=== PATIENT | female | born 2000 | race Two or more races ===

== ENCOUNTER → 2022-04-06 | Outpatient (CLI) | payer MEDICAID ==
[~2022-04-06] MED LIST: PRENTAB28 PO
[2022-04-06 09:33] LABS: Urine Amorphous Crystal MOD /hpf (None Seen); Urine Bacteria FEW /hpf (None Seen); Urine Blood Negative /uL (Negative); Urine Mucus FEW (None Seen); Urine WBC 3 /hpf (0 - 5)
[2022-04-06 09:34] LABS: Basophils # (auto) 0 10 ^3/uL (0-0.2); Basophils % (auto) 0.6 % (0.0-2.0); Eosinophils # (auto) 0 10 ^3/uL (0-0.8); Eosinophils % (auto) 0.6 % (0.0-7.0); Hematocrit 37.3 % (36.0-46.0); Hemoglobin 12.7 g/dL (12.2-16.2); Lymphocytes # (auto) 1.7 10 ^3/uL (0.4-5.4); Lymphocytes % (auto) 27.6 % (10.0-50.0); Mean Corpuscular Hemoglobin 29.3 pg (28.0-32.0); Mean Corpuscular Volume 86.3 fL (80.0-100.0); Monocytes # (auto) 0.4 10 ^3/uL (0-1.3); Neutrophils % (auto) 64.2 % (37.0-80.0); Nucleated Red Blood Cells % 0.1 %; Red Blood Cells 4.32 10^6/uL (4.0-5.20); Red Cell Distribution Width 13.7 % (11.8-14.3); White Blood Cell 6.1 10^3/uL (4.4-10.8)
[2022-04-06 10:11] LABS: Amphetamine Screen, Urine NEGATIVE (NEGATIVE); Barbiturate Scree,Urine NEGATIVE (NEGATIVE); Benzodiazephine Screen, Urine NEGATIVE (NEGATIVE); Cannabinoid Screen, Urine POSITIVE (NEGATIVE); Cocaine Screen, Urine NEGATIVE (NEGATIVE); Phencyclidine Screen, Urine NEGATIVE (NEGATIVE)
[2022-04-06 10:16] LABS: Opiate Scree,Urine NEGATIVE (NEGATIVE)
[2022-04-07 08:07] LABS: RPR Non Reactive (Non Reactive)
== END | disposition home or self-care (01) ==
LOC: LAB 09:02
PROVIDERS: ATTEND Obstetrics & Gynecology
DX: Z34.80 Encounter for supervision of other normal pregnancy, unspecified trimester (principal); Z36.0 Encounter for antenatal screening for chromosomal anomalies; Z31.430 Encounter of female for testing for genetic disease carrier status for procreative management; N39.0 Urinary tract infection, site not specified; Z3A.00 Weeks of gestation of pregnancy not specified
CPT/HCPCS: 36415; 80307; 81001; 83036; 84112; 84702; 85025; 86592; 86703; 86762; 86850; 86900; 86901; 87086; 87340

== ENCOUNTER 2022-04-30 08:03 | Emergency (ER) | payer MEDICAID ==
[~2022-04-30] VITALS: Ht 162.6 cm; Wt 80.3 kg
[2022-04-30 08:34] LABS: Basophils # (auto) 0 10 ^3/uL (0-0.2); Basophils % (auto) 0.4 % (0.0-2.0); Eosinophils # (auto) 0 10 ^3/uL (0-0.8); Hematocrit 38.1 % (36.0-46.0); Hemoglobin 13.2 g/dL (12.2-16.2); Lymphocytes % (auto) 11.8 % (10.0-50.0); Mean Corpuscular Hemoglobin 29.6 pg (28.0-32.0); Mean Corpuscular Hgb Conc. 34.7 g/dL (32.0-36.0); Mean Corpuscular Volume 85.3 fL (80.0-100.0); Monocytes # (auto) 0.5 10 ^3/uL (0-1.3); Monocytes % (auto) 5.2 % (0.0-12.0); Neutrophils # (auto) 7.3 10 ^3/uL (1.6-8.6); Neutrophils % (auto) 82.6 % (37.0-80.0); Red Blood Cells 4.47 10^6/uL (4.0-5.20); Red Cell Distribution Width 13.8 % (11.8-14.3); White Blood Cell 8.8 10^3/uL (4.4-10.8)
[2022-04-30 08:57] LABS: Calcium 9.7 mg/dL (8.5-10.1); Potassium 3.4 mmol/L (3.5-5.1)
[2022-04-30] MEDS ORDERED: LACTATED RINGER'S 1,000 ML IV ONE (09:15)
[2022-04-30] MEDS ORDERED: ONDANSETRON HCL 4 MG/2 ML VIAL IV ONE (09:15)
[2022-04-30 09:30] VITALS: BP 120/75
[2022-04-30 09:54] LABS: Urine Bacteria NONE SEEN /hpf (None Seen); Urine Blood Negative /uL (Negative); Urine Mucus FEW (None Seen); Urine Specific Gravity 1.024 (1.001-1.035); Urine WBC 10 /hpf (0 - 5)
[2022-04-30] MEDS ORDERED: PROM25TA5 PO (10:31)
== END 2022-04-30 11:08 | disposition home or self-care (01) ==
LOC: ER 08:07
DX: O21.8 Other vomiting complicating pregnancy (principal); R10.2 Pelvic and perineal pain; Z79.899 Other long term (current) drug therapy; Z3A.13 13 weeks gestation of pregnancy
CPT/HCPCS: 36415; 80048; 81001; 84702; 85025; 96361; 96374; 99283; J2405; J7120

== ENCOUNTER 2022-05-02 04:34 | Emergency (ER) | payer MEDICAID ==
[~2022-05-02] VITALS: Ht 162.6 cm; Wt 80.3 kg
[~2022-05-02 04:34] MED LIST changes: +PROM25TA5 PO
[2022-05-02] MEDS ORDERED: PROMETHAZINE HCL 25 MG/ML 1ML IV ONE (04:45)
[2022-05-02] MEDS ORDERED: SODIUM CHLORIDE 0.9% 1,000 ML IV ONE ×3 (04:45→07:00)
[2022-05-02 05:07] LABS: Basophils # (auto) 0 10 ^3/uL (0-0.2); Basophils % (auto) 0.3 % (0.0-2.0); Eosinophils # (auto) 0 10 ^3/uL (0-0.8); Eosinophils % (auto) 0.2 % (0.0-7.0); Hematocrit 36.1 % (36.0-46.0); Hemoglobin 12.7 g/dL (12.2-16.2); Lymphocytes # (auto) 1.6 10 ^3/uL (0.4-5.4); Lymphocytes % (auto) 21.1 % (10.0-50.0); Mean Corpuscular Hemoglobin 29.9 pg (28.0-32.0); Mean Corpuscular Hgb Conc. 35.2 g/dL (32.0-36.0); Mean Corpuscular Volume 85.1 fL (80.0-100.0); Monocytes # (auto) 0.4 10 ^3/uL (0-1.3); Monocytes % (auto) 5.7 % (0.0-12.0); Neutrophils # (auto) 5.5 10 ^3/uL (1.6-8.6); Neutrophils % (auto) 72.7 % (37.0-80.0); Red Blood Cells 4.24 10^6/uL (4.0-5.20); Red Cell Distribution Width 13.7 % (11.8-14.3); White Blood Cell 7.6 10^3/uL (4.4-10.8)
[2022-05-02] MEDS ORDERED: METOCLOPRAMIDE HCL 5MG/ml INJ 2ml VIAL IV ONE (05:15)
[2022-05-02 05:17] LABS: Albumin 3.7 g/dL (3.4-5.0); BUN/Creatinine Ratio 7.2; Calcium 9.3 mg/dL (8.5-10.1); Potassium 3.1 mmol/L (3.5-5.1)
[2022-05-02 05:20] LABS: Bilirubin, Total 0.8 mg/dL (0.2-1.0); Total Protein 7.3 g/dL (6.4-8.2)
[2022-05-02 08:53] LABS: Urine Bacteria FEW /hpf (None Seen); Urine Blood Negative /uL (Negative); Urine Mucus FEW (None Seen); Urine Specific Gravity 1.022 (1.001-1.035); Urine WBC 5 /hpf (0 - 5)
[2022-05-02 09:27] VITALS: BP 108/64
== END 2022-05-02 09:32 | disposition home or self-care (01) ==
LOC: ER 04:34
DX: O21.0 Mild hyperemesis gravidarum (principal); O26.891 Other specified pregnancy related conditions, first trimester; R10.2 Pelvic and perineal pain; Z3A.13 13 weeks gestation of pregnancy
CPT/HCPCS: 36415; 76801; 80053; 81001; 83690; 84702; 85025; 96361; 96374; 99285; J2765; J7030

== ENCOUNTER 2022-07-13 16:35 | Emergency (ER) | payer MEDICAID ==
[~2022-07-13] VITALS: Ht 162.6 cm; Wt 93.4 kg
[2022-07-13 17:00] VITALS: BP 124/61
[2022-07-13 18:41] LABS: Basophils # (auto) 0 10 ^3/uL (0-0.2); Basophils % (auto) 0.4 % (0.0-2.0); Eosinophils # (auto) 0 10 ^3/uL (0-0.8); Eosinophils % (auto) 0.2 % (0.0-7.0); Hematocrit 35.3 % (36.0-46.0); Hemoglobin 11.6 g/dL (12.2-16.2); Lymphocytes # (auto) 1.9 10 ^3/uL (0.4-5.4); Lymphocytes % (auto) 20.7 % (10.0-50.0); Mean Corpuscular Hemoglobin 28.8 pg (28.0-32.0); Mean Corpuscular Hgb Conc. 32.8 g/dL (32.0-36.0); Monocytes # (auto) 0.5 10 ^3/uL (0-1.3); Monocytes % (auto) 5.6 % (0.0-12.0); Neutrophils # (auto) 6.7 10 ^3/uL (1.6-8.6); Neutrophils % (auto) 73.1 % (37.0-80.0); Nucleated Red Blood Cells % 0.1 %; Red Blood Cells 4.01 10^6/uL (4.0-5.20); Red Cell Distribution Width 13.8 % (11.8-14.3); White Blood Cell 9.1 10^3/uL (4.4-10.8)
[2022-07-13 19:00] LABS: Albumin 3.2 g/dL (3.4-5.0); Calcium 9.1 mg/dL (8.5-10.1); Potassium 3.9 mmol/L (3.5-5.1)
[2022-07-13 19:04] LABS: BUN/Creatinine Ratio 7.8 (10.0-20.0); Bilirubin, Total 0.2 mg/dL (0.2-1.0); Total Protein 6.6 g/dL (6.4-8.2)
[2022-07-13 20:18] LABS: Urine Amorphous Crystal FEW /hpf (None Seen); Urine Bacteria FEW /hpf (None Seen); Urine Blood Negative /uL (Negative); Urine WBC <1 /hpf (0 - 5)
[2022-07-13 20:46] LABS: Alcohol, Urine < 3.0 mg/dL (0-10); Amphetamine Screen, Urine NEGATIVE (NEGATIVE); Barbiturate Scree,Urine NEGATIVE (NEGATIVE); Benzodiazephine Screen, Urine NEGATIVE (NEGATIVE); Cannabinoid Screen, Urine POSITIVE (NEGATIVE); Cocaine Screen, Urine NEGATIVE (NEGATIVE)
[2022-07-13 20:54] LABS: Opiate Scree,Urine NEGATIVE (NEGATIVE); Phencyclidine Screen, Urine NEGATIVE (NEGATIVE)
== END 2022-07-13 22:53 | disposition left against medical advice (07) ==
LOC: ER 16:35
DX: O21.8 Other vomiting complicating pregnancy (principal); R10.2 Pelvic and perineal pain; Z3A.24 24 weeks gestation of pregnancy; Z53.21 Procedure and treatment not carried out due to patient leaving prior to being seen by health care provider; Z79.899 Other long term (current) drug therapy
CPT/HCPCS: 36415; 80053; 80307; 81001; 84702; 85025

== ENCOUNTER 2022-07-23 17:18 | Emergency (ER) | payer MEDICAID ==
[~2022-07-23] VITALS: Ht 165.1 cm; Wt 90.6 kg
[2022-07-23 18:24] LABS: Urine Bacteria NONE SEEN /hpf (None Seen); Urine Blood Negative /uL (Negative); Urine Mucus MODERATE (None Seen); Urine Specific Gravity 1.036 (1.001-1.035); Urine WBC 2 /hpf (0 - 5)
[2022-07-23] MEDS ORDERED: SODIUM CHLORIDE 0.9% 1,000 ML IV ONE ×2 (18:30→19:45)
[2022-07-23] MEDS ORDERED: METOCLOPRAMIDE HCL 5MG/ml INJ 2ml VIAL IV ONE (18:45)
[2022-07-23 18:52] VITALS: BP 124/69
[2022-07-23 19:40] LABS: Basophils # (auto) 0 10 ^3/uL (0-0.2); Basophils % (auto) 0.2 % (0.0-2.0); Eosinophils # (auto) 0 10 ^3/uL (0-0.8); Eosinophils % (auto) 0.1 % (0.0-7.0); Hemoglobin 11.7 g/dL (12.2-16.2); Lymphocytes # (auto) 1.3 10 ^3/uL (0.4-5.4); Lymphocytes % (auto) 14.8 % (10.0-50.0); Mean Corpuscular Hemoglobin 28.4 pg (28.0-32.0); Mean Corpuscular Hgb Conc. 32.6 g/dL (32.0-36.0); Mean Corpuscular Volume 87.1 fL (80.0-100.0); Monocytes # (auto) 0.4 10 ^3/uL (0-1.3); Monocytes % (auto) 4.5 % (0.0-12.0); Neutrophils # (auto) 7.3 10 ^3/uL (1.6-8.6); Neutrophils % (auto) 80.4 % (37.0-80.0); Nucleated Red Blood Cells % 0.1 %; Red Blood Cells 4.13 10^6/uL (4.0-5.20); Red Cell Distribution Width 13.2 % (11.8-14.3); White Blood Cell 9.1 10^3/uL (4.4-10.8)
[2022-07-23 19:51] LABS: Albumin 3.6 g/dL (3.4-5.0); Calcium 8.9 mg/dL (8.5-10.1); Potassium 3.6 mmol/L (3.5-5.1)
[2022-07-23 19:54] LABS: BUN/Creatinine Ratio 11.5 (10.0-20.0); Bilirubin, Total 0.4 mg/dL (0.2-1.0); Total Protein 7.8 g/dL (6.4-8.2)
== END 2022-07-23 22:06 | disposition home or self-care (01) ==
LOC: ER 17:18
DX: O21.8 Other vomiting complicating pregnancy (principal); R10.2 Pelvic and perineal pain; Z3A.25 25 weeks gestation of pregnancy
CPT/HCPCS: 36415; 80053; 81001; 83605; 83690; 84702; 85025; 96361; 96374; 99283; J2765; J7030

== ENCOUNTER 2022-09-08 14:20 | Observation (INO) | payer MEDICAID ==
[~2022-09-08] VITALS: Ht 30.5 cm; Wt 0.5 kg
[~2022-09-08 14:20] MED LIST changes: +PROM25TA10 PO; -PROM25TA5 PO
[2022-09-08] MEDS ORDERED: D5W/LACTATED RINGERS 1,000 ML IV ONE (15:15)
[2022-09-08] MEDS ORDERED: ONDANSETRON HCL 4 MG/2 ML VIAL IV PRN (15:15)
[2022-09-08] MEDS ORDERED: FAMOTIDINE (10MG/ML) 2ML VL IV STA (16:26)
[2022-09-08] MEDS ORDERED: HYDR5CRE3 PR (16:34)
[2022-09-08] MEDS ORDERED: PRENCAP75 PO (16:34)
[2022-09-08] MEDS ORDERED: PYRI1TAB10 PO (16:34)
[2022-09-08] MEDS ORDERED: DOXY25TA9 PO (16:34)
== END 2022-09-08 17:10 | disposition home or self-care (01) ==
LOC: LDRP 14:20 → UNDOADMOB 14:20 → LDRP 14:33
PROVIDERS: ADMIT Obstetrics & Gynecology; ATTEND Obstetrics & Gynecology
DX: O21.0 Mild hyperemesis gravidarum (principal); O22.43 Hemorrhoids in pregnancy, third trimester; O26.893 Other specified pregnancy related conditions, third trimester; R12 Heartburn; R10.9 Unspecified abdominal pain; O99.891 Other specified diseases and conditions complicating pregnancy; M54.50 Low back pain, unspecified; Z3A.32 32 weeks gestation of pregnancy
CPT/HCPCS: 59025; 81002; 94760; 96361; 96374; 96375; G0378; J2405; J3490; 96360

== ENCOUNTER 2022-09-14 10:06 | Observation (INO) | payer MEDICAID ==
[~2022-09-14] VITALS: Ht 162.6 cm; Wt 95.3 kg
[~2022-09-14 10:06] MED LIST changes: +DOXY25TA9 PO; +HYDR5CRE3 PR; +PRENCAP75 PO; -PRENTAB28 PO; -PROM25TA10 PO; +PYRI1TAB10 PO
[2022-09-14] MEDS: TERBUTALINE SULFATE 1 MG/ML 1ML VIAL SC SCH ×2 (12:42→13:24)
== END 2022-09-14 13:52 | disposition home or self-care (01) ==
LOC: UNDOADMOB 10:06 → LDRP 10:06 → UNDODISOB 13:52
PROVIDERS: ADMIT Obstetrics & Gynecology; ATTEND Obstetrics & Gynecology
DX: O99.891 Other specified diseases and conditions complicating pregnancy (principal); N13.30 Unspecified hydronephrosis; O21.2 Late vomiting of pregnancy; Z3A.33 33 weeks gestation of pregnancy
CPT/HCPCS: 59025; 76818; 81002; 94760; 96372; G0378; J3105

== ENCOUNTER 2022-09-16 04:27 | Observation (INO) | payer MEDICAID ==
[~2022-09-16] VITALS: Ht 162.6 cm; Wt 95.3 kg
[2022-09-16] MEDS ORDERED: TERBUTALINE SULFATE 1 MG/ML 1ML VIAL SC SCH (04:45)
[2022-09-16] MEDS ORDERED: LACTATED RINGER'S 1,000 ML IV ONE (04:45)
[2022-09-16] MEDS ORDERED: LACTATED RINGER'S 1,000 ML IV SCH (04:45)
[2022-09-16] MEDS ORDERED: BETAMETHASONE ACET (30mg/5ml) 5ml Vial 6mg/ml IM ONE (05:15)
[2022-09-16] MEDS ORDERED: ONDANSETRON HCL 4 MG/2 ML VIAL IM ONE (06:45)
[2022-09-16] MEDS ORDERED: FAMOTIDINE (10MG/ML) 2ML VL IV ONE (06:45)
== END 2022-09-16 07:40 | disposition home or self-care (01) ==
LOC: LDRP 04:27
PROVIDERS: ADMIT Obstetrics & Gynecology; ATTEND Obstetrics & Gynecology
DX: O60.03 Preterm labor without delivery, third trimester (principal); O62.9 Abnormality of forces of labor, unspecified; O21.2 Late vomiting of pregnancy; Z3A.33 33 weeks gestation of pregnancy
CPT/HCPCS: 59025; 76815; 76817; 81002; 94760; 96361; 96372; 96374; G0378; J0702; J2405; J3105; J3490; 96360; 96375

== ENCOUNTER 2022-09-17 05:00 | Observation (INO) | payer MEDICAID ==
[~2022-09-17] VITALS: Ht 162.6 cm; Wt 95.3 kg
[2022-09-17] MEDS ORDERED: BETAMETHASONE ACET (30mg/5ml) 5ml Vial 6mg/ml IM ONE (05:15)
[2022-09-17] MEDS ORDERED: TERBUTALINE SULFATE 1 MG/ML 1ML VIAL SC SCH (05:30)
[2022-09-17] MEDS ORDERED: LACTATED RINGER'S 1,000 ML IV ONE (05:30)
== END 2022-09-17 07:26 | disposition home or self-care (01) ==
LOC: LDRP 05:00
PROVIDERS: ADMIT Obstetrics & Gynecology; ATTEND Obstetrics & Gynecology
DX: O60.03 Preterm labor without delivery, third trimester (principal); Z3A.33 33 weeks gestation of pregnancy
CPT/HCPCS: 59025; 81002; 94760; 96360; 96361; 96372; G0378; J0702; J3105

== ENCOUNTER 2022-09-21 11:30 | Observation (INO) | payer MEDICAID | END 2022-09-21 14:25 | disposition home or self-care (01) | LOC: LDRP 11:30 | PROVIDERS: ADMIT Obstetrics & Gynecology; ATTEND Obstetrics & Gynecology | DX: O60.03 Preterm labor without delivery, third trimester (principal); O99.891 Other specified diseases and conditions complicating pregnancy; N13.30 Unspecified hydronephrosis; O21.2 Late vomiting of pregnancy; O99.323 Drug use complicating pregnancy, third trimester; F12.90 Cannabis use, unspecified, uncomplicated; O99.343 Other mental disorders complicating pregnancy, third trimester; F32.A Depression, unspecified; Z3A.34 34 weeks gestation of pregnancy; Z87.891 Personal history of nicotine dependence | CPT/HCPCS: 59025; 76818; 81002; 94760; G0378 ==

== ENCOUNTER 2022-09-28 12:17 | Observation (INO) | payer MEDICAID ==
[~2022-09-28] VITALS: Ht 162.6 cm; Wt 94.8 kg
== END 2022-09-28 14:12 | disposition home or self-care (01) ==
LOC: LDRP 12:17
PROVIDERS: ADMIT Obstetrics & Gynecology; ATTEND Obstetrics & Gynecology
DX: O99.891 Other specified diseases and conditions complicating pregnancy (principal); N13.30 Unspecified hydronephrosis; O99.323 Drug use complicating pregnancy, third trimester; F12.90 Cannabis use, unspecified, uncomplicated; O99.343 Other mental disorders complicating pregnancy, third trimester; F32.A Depression, unspecified; Z3A.35 35 weeks gestation of pregnancy; Z87.891 Personal history of nicotine dependence
CPT/HCPCS: 59025; 76818; 81002; 94760; G0378

== ENCOUNTER 2022-10-02 08:20 | Observation (INO) | payer MEDICAID ==
[~2022-10-02] VITALS: Ht 162.6 cm; Wt 93.0 kg
[2022-10-02] MEDS ORDERED: LACTATED RINGER'S 1,000 ML IV SCH (09:30)
[2022-10-02] MEDS ORDERED: LACTATED RINGER'S 1,000 ML IV ONE (09:30)
[2022-10-02] MEDS ORDERED: ONDANSETRON HCL 4 MG/2 ML VIAL IV PRN (09:30)
== END 2022-10-02 14:46 | disposition home or self-care (01) ==
LOC: LDRP 08:20
PROVIDERS: ADMIT Obstetrics & Gynecology; ATTEND Obstetrics & Gynecology
DX: O99.283 Endocrine, nutritional and metabolic diseases complicating pregnancy, third trimester (principal); E86.0 Dehydration; O60.03 Preterm labor without delivery, third trimester; O21.0 Mild hyperemesis gravidarum; O99.343 Other mental disorders complicating pregnancy, third trimester; F32.A Depression, unspecified; F43.10 Post-traumatic stress disorder, unspecified; O23.03 Infections of kidney in pregnancy, third trimester; N12 Tubulo-interstitial nephritis, not specified as acute or chronic; Z3A.35 35 weeks gestation of pregnancy
CPT/HCPCS: 59025; 81002; 96361; 96374; G0378; J2405; 96360; 96375

== ENCOUNTER 2022-10-13 01:15 | Observation (INO) | payer MEDICAID ==
[2022-10-13] MEDS ORDERED: CEPH250C PO (23:24)
[2022-10-13] MEDS ORDERED: ZOFR4T PO (23:27)
== END 2022-10-13 02:50 | disposition home or self-care (01) ==
LOC: LDRP 01:15 → UNDOADMOB 01:15 → LDRP 01:22
PROVIDERS: ADMIT Obstetrics & Gynecology; ATTEND Obstetrics & Gynecology
DX: O21.2 Late vomiting of pregnancy (principal); O26.893 Other specified pregnancy related conditions, third trimester; R10.9 Unspecified abdominal pain; O99.323 Drug use complicating pregnancy, third trimester; F12.90 Cannabis use, unspecified, uncomplicated; Z3A.37 37 weeks gestation of pregnancy; Z87.891 Personal history of nicotine dependence
CPT/HCPCS: 59025; 81002; 94760; G0378

== ENCOUNTER 2022-10-13 20:25 | Observation (INO) | payer MEDICAID ==
[~2022-10-13] VITALS: Ht 162.6 cm; Wt 95.3 kg
[2022-10-13] MEDS ORDERED: ONDANSETRON HCL 4 MG/2 ML VIAL IV ONE (21:00)
[2022-10-13] MEDS ORDERED: D5W/LACTATED RINGERS 1,000 ML IV ONE (21:00)
[2022-10-13] MEDS ORDERED: LACTATED RINGER'S 1,000 ML IV ONE (21:00)
[2022-10-13 21:23] LABS: Basophils # (auto) 0 10 ^3/uL (0-0.2); Eosinophils # (auto) 0 10 ^3/uL (0-0.8); Eosinophils % (auto) 0.3 % (0.0-7.0); Lymphocytes # (auto) 1.6 10 ^3/uL (0.4-5.4); Mean Corpuscular Hemoglobin 26.9 pg (28.0-32.0); Monocytes # (auto) 0.4 10 ^3/uL (0-1.3); Red Cell Distribution Width 14.6 % (11.8-14.3)
[2022-10-13 21:25] LABS: Basophils % (auto) 0.4 % (0.0-2.0); Hematocrit 33.9 % (36.0-46.0); Hemoglobin 11.3 g/dL (12.2-16.2); Lymphocytes % (auto) 26.1 % (10.0-50.0); Mean Corpuscular Hgb Conc. 33.4 g/dL (32.0-36.0); Mean Corpuscular Volume 80.6 fL (80.0-100.0); Neutrophils # (auto) 4.2 10 ^3/uL (1.6-8.6); Neutrophils % (auto) 67.2 % (37.0-80.0); Nucleated Red Blood Cells % 0.2 %; Red Blood Cells 4.21 10^6/uL (4.0-5.20); White Blood Cell 6.3 10^3/uL (4.4-10.8)
[2022-10-13] MEDS ORDERED: ACETAMINOPHEN 500 MG TAB PO ONE (21:30)
[2022-10-13 21:42] LABS: Albumin 2.8 g/dL (3.4-5.0); Calcium 8.6 mg/dL (8.5-10.1); Potassium 3.8 mmol/L (3.5-5.1)
[2022-10-13 21:46] LABS: BUN/Creatinine Ratio 7.8 (10.0-20.0); Bilirubin, Total 0.5 mg/dL (0.2-1.0); Total Protein 6.5 g/dL (6.4-8.2)
[2022-10-13 21:55] LABS: Urine Bacteria FEW /hpf (None Seen); Urine Blood Negative /uL (Negative); Urine Mucus FEW (None Seen); Urine Specific Gravity 1.021 (1.001-1.035); Urine WBC 11 /hpf (0 - 5)
[2022-10-13] MEDS ORDERED: CEPH250C PO (23:24)
[2022-10-13] MEDS ORDERED: ZOFR4T PO (23:27)
== END 2022-10-13 23:55 | disposition home or self-care (01) ==
LOC: LDRP 20:25
PROVIDERS: ADMIT Obstetrics & Gynecology; ATTEND Obstetrics & Gynecology
DX: O21.0 Mild hyperemesis gravidarum (principal); Z20.822 Contact with and (suspected) exposure to COVID-19; O23.43 Unspecified infection of urinary tract in pregnancy, third trimester; O26.893 Other specified pregnancy related conditions, third trimester; R10.10 Upper abdominal pain, unspecified; O99.323 Drug use complicating pregnancy, third trimester; F12.90 Cannabis use, unspecified, uncomplicated; Z3A.37 37 weeks gestation of pregnancy
CPT/HCPCS: 36415; 80053; 81001; 85025; 87426; 87804; 96361; 96374; G0378; J2405

== ENCOUNTER 2022-10-26 19:50 | Inpatient (IN) | payer MEDICAID ==
[~2022-10-26] VITALS: Ht 165.1 cm; Wt 95.7 kg
[~2022-10-26 19:50] MED LIST changes: +CEPH250C PO; +ZOFR4T PO
[2022-10-26] MEDS ORDERED: PHISODERM TOP SOLN 240ML BTL TOP PRN (20:30)
[2022-10-26] MEDS ORDERED: PROMETHAZINE HCL 25 MG/ML 1ML IV PRN (20:30)
[2022-10-26] MEDS ORDERED: WITCH HAZEL-GLYCERIN PAD TOP PRN (20:30)
[2022-10-26] MEDS ORDERED: LIDOCAINE 2%HCL (LOCAL ANESTH.) INJ 20ML MDV IJ PRN (20:30)
[2022-10-26] MEDS ORDERED: DERMOPLAST 60ML BOTTLE TOP PRN (20:30)
[2022-10-26] MEDS ORDERED: DOCUSATE SOD 100 MG CAP PO ONE (20:45)
[2022-10-26] MEDS ORDERED: BISACODYL 10 MG RECT SUPP PR ONE (20:45)
[2022-10-26 21:21] LABS: Basophils # (auto) 0 10 ^3/uL (0-0.2); Eosinophils # (auto) 0 10 ^3/uL (0-0.8); Eosinophils % (auto) 0.2 % (0.0-7.0); Hemoglobin 11.6 g/dL (12.2-16.2); Mean Corpuscular Hgb Conc. 33.1 g/dL (32.0-36.0); Monocytes # (auto) 0.4 10 ^3/uL (0-1.3); Red Blood Cells 4.37 10^6/uL (4.0-5.20)
[2022-10-26 21:23] LABS: Basophils % (auto) 0.2 % (0.0-2.0); Hematocrit 35.1 % (36.0-46.0); Lymphocytes # (auto) 1.8 10 ^3/uL (0.4-5.4); Mean Corpuscular Hemoglobin 26.6 pg (28.0-32.0); Mean Corpuscular Volume 80.4 fL (80.0-100.0); Neutrophils # (auto) 4.8 10 ^3/uL (1.6-8.6); Neutrophils % (auto) 67.6 % (37.0-80.0); Red Cell Distribution Width 15.1 % (11.8-14.3)
[2022-10-26 21:25] LABS: Urine Bacteria FEW /hpf (None Seen); Urine Blood Negative /uL (Negative); Urine Clarity CLOUDY (Clear); Urine Color Yellow (Yellow); Urine Mucus FEW (None Seen); Urine Protein, UAD 1+ (Negative); Urine Specific Gravity 1.029 (1.001-1.035); Urine WBC 44 /hpf (0 - 5); Urine pH 6.5 (5.0-8.0)
[2022-10-26 21:38] LABS: Amphetamine Screen, Urine NEGATIVE (NEGATIVE); Barbiturate Scree,Urine NEGATIVE (NEGATIVE); Benzodiazephine Screen, Urine NEGATIVE (NEGATIVE); Cannabinoid Screen, Urine POSITIVE (NEGATIVE); Cocaine Screen, Urine NEGATIVE (NEGATIVE)
[2022-10-26 21:38] LABS: Albumin 2.9 g/dL (3.4-5.0); Calcium 8.8 mg/dL (8.5-10.1); Potassium 3.9 mmol/L (3.5-5.1)
[2022-10-26 21:45] LABS: BUN/Creatinine Ratio 9.5 (10.0-20.0); Bilirubin, Total 0.3 mg/dL (0.2-1.0); Total Protein 6.9 g/dL (6.4-8.2)
[2022-10-26 21:46] LABS: Opiate Scree,Urine NEGATIVE (NEGATIVE); Phencyclidine Screen, Urine NEGATIVE (NEGATIVE)
[2022-10-26 21:48] LABS: INR 0.93 (0.9-1.15); Partial Thromboplastin Time 24.7 SEC (24.5-34.5); Prothrombin Time 9.8 sec (9.3-11.8)
[2022-10-26] MEDS: LACTATED RINGER'S 1,000 ML IV SCH ×2 (22:09→22:24)
[2022-10-27] MEDS ORDERED: LIDOCAINE 2%HCL (LOCAL ANESTH.) INJ 20ML MDV IJ PRN (02:00)
[2022-10-27] MEDS ORDERED: METHYLERGONOVINE MALEATE 0.2 MG/ML AMP IM PRN ×2 (04:30→07:15)
[2022-10-27] MEDS ORDERED: miSOPROStol 100 mcg TAB PR PRN (04:30)
[2022-10-27] MEDS ORDERED: miSOPROStol 100 mcg TAB SL PRN ×2 (04:30→07:15)
[2022-10-27] MEDS ORDERED: LACT. RINGERS/OXYTOCIN 20UNITS 500 ML IV ONE ×2 (04:30→05:00)
[2022-10-27] MEDS ORDERED: LACT. RINGERS/OXYTOCIN 20UNITS 1,000 ML IV SCH (06:15)
[2022-10-27] MEDS ORDERED: CARBOPROST TROMETHAMINE 250 MCG/1ML VIAL IM PRN (07:15)
[2022-10-27] MEDS ORDERED: ACETAMINOPHEN 325 MG TAB PO PRN ×2 (07:15→11:15)
[2022-10-27] MEDS ORDERED: diphenhdrAMINE HCL 50 MG/1 ML VL IV PRN (07:15)
[2022-10-27] MEDS ORDERED: fentaNYL CITRATE 100 MCG/2 ML VL IV PRN (07:15)
[2022-10-27] MEDS ORDERED: MINERAL OIL TOPICAL 10ml TOP PRN (07:15)
[2022-10-27] MEDS ORDERED: TRANEXAMIC ACID 1,000 MG in SODIUM CHL 0.9% 100 ML IV PRN (07:15)
[2022-10-27] MEDS ORDERED: PROMETHAZINE HCL 25 MG/ML 1ML IM PRN (07:15)
[2022-10-27] MEDS ORDERED: ONDANSETRON HCL 4 MG/2 ML VIAL IV PRN (07:15)
[2022-10-27] MEDS ORDERED: ePHEDrine SULFATE 50 MG/ML AMP IV ONE (09:45)
[2022-10-27] MEDS ORDERED: ROPIVACAINE HCL 200 ML EPI SCH (09:45)
[2022-10-27] MEDS ORDERED: LACTATED RINGER'S 1,000 ML IV ONE (09:45)
[2022-10-27] MEDS ORDERED: ONDANSETRON ODT 4 MG TAB PO PRN (11:15)
[2022-10-27] MEDS ORDERED: TRANEXAMIC ACID 1,000 MG in SODIUM CHL 0.9% 100 ML IV ONE (11:15)
[2022-10-27] MEDS ORDERED: DIPHENOXYLATE W/ATROPINE 2.5 MG TAB PO SCH (12:00)
[2022-10-27 15:00] VITALS: BP 108/69; PULSE 91; TEMP 99; O2SAT 97
[2022-10-27] MEDS ORDERED: ceFAZolin 2 GM/D5W100ml 100 ML IV STA (15:53)
[2022-10-27] MEDS: IBUPROFEN 600 MG TAB PO PRN (18:24)
[2022-10-27 18:58] VITALS: BP 123/74; PULSE 101; RESP 18; TEMP 98.4; O2SAT 98
[2022-10-27] MEDS ORDERED: DOCUSATE SOD 100 MG CAP PO SCH (22:00)
[2022-10-27 22:44] VITALS: BP 95/64; PULSE 74; RESP 18; TEMP 98.2; O2SAT 100
[2022-10-28 02:53] VITALS: BP 90/53; PULSE 67; RESP 16; TEMP 98.3; O2SAT 99
[2022-10-28] MEDS: LACTATED RINGER'S 1,000 ML IV SCH (06:00)
[2022-10-28 06:40] VITALS: BP 110/76; PULSE 68; RESP 16; TEMP 98.3; O2SAT 99
[2022-10-28] MEDS: IBUPROFEN 600 MG TAB PO PRN ×2 (06:47→15:25)
[2022-10-28 07:06] LABS: RPR Non Reactive (Non Reactive)
[2022-10-28] MEDS ORDERED: DOCU-94 PO ×2 (10:16→10:17)
[2022-10-28 11:07] VITALS: BP 100/67; PULSE 74; RESP 16; TEMP 98.1; O2SAT 97
[2022-10-28 15:07] VITALS: BP 99/66; PULSE 62; RESP 15; TEMP 98.3; O2SAT 99
[2022-10-28] MEDS ORDERED: TRANEXAMIC ACID 1,000 mg/10ml INJ VIAL IV ONE (15:59)
[2022-10-29 22:06] LABS: Treponema pallidum Ab (FTA-Ab) Non Reactive (Non Reactive)
== END 2022-10-28 16:00 | disposition home or self-care (01) | DRG 560 ==
LOC: LDRP 19:50 → OBSVTOIN 10-27 01:06 → LDRP 10-27 15:53
PROVIDERS: ADMIT Obstetrics & Gynecology; ATTEND Obstetrics & Gynecology
PROC: 10E0XZZ Delivery of Products of Conception, External Approach (ICD-10-PCS; principal; 2022-10-27)
PROC: 0HQ9XZZ Repair Perineum Skin, External Approach (ICD-10-PCS; 2022-10-27)
PROC: 3E0R3BZ Introduction of Anesthetic Agent into Spinal Canal, Percutaneous Approach (ICD-10-PCS; 2022-10-27)
PROC: 00HU33Z Insertion of Infusion Device into Spinal Canal, Percutaneous Approach (ICD-10-PCS; 2022-10-27)
DX: O69.81X0 Labor and delivery complicated by cord around neck, without compression, not applicable or unspecified (principal); Z37.0 Single live birth; O72.1 Other immediate postpartum hemorrhage; Z3A.39 39 weeks gestation of pregnancy; O70.0 First degree perineal laceration during delivery; O32.6XX0 Maternal care for compound presentation, not applicable or unspecified; Z53.20 Procedure and treatment not carried out because of patient's decision for unspecified reasons
CPT/HCPCS: 36415; 59025; 59409; 62282; 80053; 80307; 81001; 81002; 85025; 85610; 85730; 86592; 86850; 86900; 86901; 94760; 96360; 96361; 96365; 96366; 96372; 96374; G0378; J2590; J7060; Q0162

== ENCOUNTER 2023-02-09 05:29 | Emergency (ER) | payer MEDICAID ==
[~2023-02-09] VITALS: Ht 162.6 cm; Wt 92.6 kg
[~2023-02-09 05:29] MED LIST changes: +DOCU-94 PO
[2023-02-09 06:10] VITALS: BP 128/80; PULSE 88; RESP 18; TEMP 97.5
[2023-02-09 07:03] VITALS: O2SAT 100
[2023-02-09] MEDS ORDERED: KETOROLAC TROMETH 60MG/2ML VIAL IM ONE (07:15)
[2023-02-09] MEDS ORDERED: METH-1182 PO (08:11)
[2023-02-09] MEDS ORDERED: IBUP-1456 PO (08:11)
== END 2023-02-09 08:04 | disposition home or self-care (01) ==
LOC: ER 05:29
DX: S39.012A Strain of muscle, fascia and tendon of lower back, initial encounter (principal); Z79.2 Long term (current) use of antibiotics; Z79.899 Other long term (current) drug therapy; X58.XXXA Exposure to other specified factors, initial encounter; Y93.89 Activity, other specified; Y92.89 Other specified places as the place of occurrence of the external cause; Y99.8 Other external cause status
CPT/HCPCS: 72100; 96372; 99283; J1885

== ENCOUNTER 2023-07-30 10:20 | Emergency (ER) | payer MEDICAID ==
[~2023-07-30] VITALS: Ht 165.1 cm; Wt 98.8 kg
[~2023-07-30 10:20] MED LIST changes: +IBUP-1456 PO; +METH-1182 PO
[2023-07-30 11:13] LABS: Basophils # (auto) 0 10 ^3/uL (0-0.2); Basophils % (auto) 0.5 % (0.0-2.0); Eosinophils # (auto) 0.1 10 ^3/uL (0-0.8); Eosinophils % (auto) 1.5 % (0.0-7.0); Hemoglobin 12.7 g/dL (12.2-16.2); Lymphocytes # (auto) 1.9 10 ^3/uL (0.4-5.4)
[2023-07-30 11:15] LABS: Hematocrit 38.3 % (36.0-46.0); Lymphocytes % (auto) 33.1 % (10.0-50.0); Mean Corpuscular Hgb Conc. 33.1 g/dL (32.0-36.0); Mean Corpuscular Volume 81.6 fL (80.0-100.0); Monocytes # (auto) 0.4 10 ^3/uL (0-1.3); Neutrophils # (auto) 3.5 10 ^3/uL (1.6-8.6); Neutrophils % (auto) 58.9 % (37.0-80.0); Red Blood Cells 4.69 10^6/uL (4.0-5.20); Red Cell Distribution Width 14.9 % (11.8-14.3); White Blood Cell 5.9 10^3/uL (4.4-10.8)
[2023-07-30 11:32] LABS: Urine Bacteria None Seen /hpf (None Seen)
[2023-07-30 11:44] LABS: Urine Blood 3+ /uL (Negative); Urine Clarity Turbid (Clear); Urine Color Colorless (Yellow); Urine Protein, UAD Negative (Negative); Urine Specific Gravity 1.017 (1.001-1.035); Urine Urobilinogen Normal (Negative); Urine WBC 5 /hpf (0 - 5)
[2023-07-30] MEDS ORDERED: TRAM50TA2 PO (11:48)
[2023-07-30 12:05] VITALS: BP 141/83; PULSE 67; RESP 18; TEMP 97.7; O2SAT 99
[2023-07-31] MEDS ORDERED: ZOFR4T PO (20:47)
[2023-07-31] MEDS ORDERED: DICY10CA PO (20:47)
[2023-07-31] MEDS ORDERED: CEPH500C PO (20:47)
== END 2023-07-30 12:08 | disposition home or self-care (01) ==
LOC: ER 10:20
DX: R10.2 Pelvic and perineal pain (principal); R11.0 Nausea; Z79.1 Long term (current) use of non-steroidal anti-inflammatories (NSAID); Z79.899 Other long term (current) drug therapy
CPT/HCPCS: 36415; 76856; 81001; 81025; 85025

== ENCOUNTER 2023-07-31 15:50 | Emergency (ER) | payer MEDICAID ==
[~2023-07-31] VITALS: Ht 162.6 cm; Wt 97.0 kg
[~2023-07-31 15:50] MED LIST changes: +TRAM50TA2 PO
[2023-07-31] MEDS: SODIUM CHLORIDE 0.9% 1,000 ML IV ONE (18:47)
[2023-07-31] MEDS: HYDROcodone-ACET 5/325MG TAB PO ONE (18:48)
[2023-07-31] MEDS: PANTOPRAZOLE 40 MG/10 ML VIAL INJ IV ONE (18:50)
[2023-07-31] MEDS: ONDANSETRON HCL 4 MG/2 ML VIAL IV ONE (18:50)
[2023-07-31 19:56] LABS: Urine Bacteria None Seen /hpf (None Seen)
[2023-07-31 20:12] LABS: Urine Blood 3+ /uL (Negative); Urine Clarity Clear (Clear); Urine Color Light-Yellow (Yellow); Urine Mucus FEW (None Seen); Urine Protein, UAD Negative (Negative); Urine Specific Gravity 1.028 (1.001-1.035); Urine Urobilinogen Normal (Negative); Urine WBC 5 /hpf (0 - 5); Urine pH 5.5 (5.0-9.0)
[2023-07-31 20:16] LABS: Amphetamine Screen, Urine Neg (NEGATIVE); Barbiturate Scree,Urine Neg (NEGATIVE); Benzodiazephine Screen, Urine Neg (NEGATIVE); Cannabinoid Screen, Urine Pos (NEGATIVE); Cocaine Screen, Urine Neg (NEGATIVE); Opiate Scree,Urine Neg (NEGATIVE); Phencyclidine Screen, Urine Neg (NEGATIVE)
[2023-07-31] MEDS ORDERED: DICY10CA PO (20:47)
[2023-07-31] MEDS ORDERED: CEPH500C PO (20:47)
[2023-07-31] MEDS ORDERED: ZOFR4T PO (20:47)
[2023-07-31 20:52] VITALS: BP 119/78; PULSE 64; RESP 16; TEMP 98.7; O2SAT 97
== END 2023-07-31 20:57 ==
LOC: ER 15:50
DX: N39.0 Urinary tract infection, site not specified (principal); K76.0 Fatty (change of) liver, not elsewhere classified; K52.9 Noninfective gastroenteritis and colitis, unspecified; R16.0 Hepatomegaly, not elsewhere classified; F12.10 Cannabis abuse, uncomplicated; Z79.899 Other long term (current) drug therapy
CPT/HCPCS: 74176; 80307; 81001; 96361; 96374; 96375; 99285; C9113; J2405; J7030

== ENCOUNTER 2023-12-09 20:06 | Emergency (ER) | payer MEDICAID ==
[~2023-12-09] VITALS: Ht 162.6 cm; Wt 94.5 kg
[~2023-12-09 20:06] MED LIST changes: +CEPH500C PO; +DICY10CA PO
[2023-12-09 20:28] LABS: Basophils # (auto) 0 10 ^3/uL (0-0.2); Basophils % (auto) 0.3 % (0.0-2.0); Eosinophils # (auto) 0.1 10 ^3/uL (0-0.8); Eosinophils % (auto) 0.9 % (0.0-7.0); Hematocrit 41.4 % (36.0-46.0); Lymphocytes # (auto) 3.2 10 ^3/uL (0.4-5.4); Lymphocytes % (auto) 46.8 % (10.0-50.0); Mean Corpuscular Hemoglobin 28.8 pg (28.0-32.0); Mean Corpuscular Hgb Conc. 33.8 g/dL (32.0-36.0); Mean Corpuscular Volume 85.1 fL (80.0-100.0); Monocytes # (auto) 0.4 10 ^3/uL (0-1.3); Neutrophils # (auto) 3.1 10 ^3/uL (1.6-8.6); Nucleated Red Blood Cells % 0.1 %; Platelet Count (auto) 220 10^3/uL (140-450); Red Blood Cells 4.87 10^6/uL (4.0-5.20); Red Cell Distribution Width 14.3 % (11.8-14.3); White Blood Cell 6.8 10^3/uL (4.4-10.8)
[2023-12-09 20:43] LABS: Alanine Aminotransferase 89 U/L (7-40); Albumin 4.8 g/dL (3.2-4.8); Alkaline Phosphatase 67 U/L (46-116); Anion Gap 7 (5-15); Aspartate Aminotransferase 36 U/L (13-40); BUN/Creatinine Ratio 11.5 (10.0-20.0); Blood Urea Nitrogen 11 mg/dL (9-23); Calcium 9.8 mg/dL (8.7-10.4); Carbon Dioxide 26 mmol/L (20-31); Chloride 106 mmol/L (98-107); Glucose 96 mg/dL (74-106); Potassium 3.8 mmol/L (3.5-5.1); Sodium 139 mmol/L (136-145)
[2023-12-09 20:44] LABS: Bilirubin, Total 0.4 mg/dL (0.2-1.0); Total Protein 7.3 g/dL (5.7-8.2)
[2023-12-09 21:10] VITALS: TEMP 97.9
[2023-12-09] MEDS: SODIUM CHLORIDE 0.9% 1,000 ML IV ONE (21:23)
[2023-12-09] MEDS: ONDANSETRON HCL 4 MG/2 ML VIAL IV ONE (21:46)
[2023-12-09] MEDS: PANTOPRAZOLE 40 MG/10 ML VIAL INJ IV ONE (21:46)
[2023-12-09] MEDS: KETOROLAC TROMETH 30 MG/ML 1ML VIAL IV ONE (21:46)
[2023-12-09 23:10] LABS: Urine Bacteria FEW /hpf (None Seen); Urine Blood Negative /uL (Negative); Urine Clarity Clear (Clear); Urine Color Yellow (Yellow); Urine Mucus FEW (None Seen); Urine Protein, UAD TRACE (Negative); Urine Specific Gravity 1.032 (1.001-1.035); Urine Urobilinogen Normal (Negative); Urine WBC 3 /hpf (0 - 5)
[2023-12-10 01:08] VITALS: BP 104/69; PULSE 58; RESP 99; O2SAT 16
== END 2023-12-10 01:13 | disposition home or self-care (01) ==
LOC: ER 20:06
DX: B34.9 Viral infection, unspecified (principal); R07.89 Other chest pain; F15.90 Other stimulant use, unspecified, uncomplicated; Z79.899 Other long term (current) drug therapy
CPT/HCPCS: 36415; 71045; 76705; 80053; 81001; 81025; 83690; 84484; 85025; 85379; 93005; 96361; 96374; 96375; 99285; J1885; J2405; J2470; J7030

== ENCOUNTER 2024-12-09 04:44 | Emergency (ER) | payer MEDICAID ==
[~2024-12-09] VITALS: Ht 162.6 cm; Wt 74.7 kg
--- NOTE | 2024-12-09 05:13 | ED.PDOC ---
GI ASSESSMENT HPI Comments 24-year-old female complains of some nausea and upset stomach but denies abdominal pain. Patient reports that that she feels some diffuse abdominal discomfort with the nausea. This started tonight. No known modifying factors. Chief Complaint: Abdominal Pain Time Seen by MD: 04:59 Primary Care Provider: UNKNOWN Allergies: Coded Allergies: NO KNOWN ALLERGIES (Unverified , 04/22/14) Home Meds Active Scripts Dicyclomine Hcl (BENTYL CAPSULE) 10 Mg Cp, 2 CAP PO TID, #30 CAP For abdominal cramps Prov:ALMANZARNORALDA Q [employer]ABLE [employer] INST[employer]ER 07/31/23 Ondansetron Odt 4MG Tab (ZOFRAN PO) 4 Mg Tb, 1 TAB PO Q8HPRN PRN, #10 TAB NEEDED FOR NAUSEA VOMITING ODT TAB-DISSOLVE IN MOUTH, THEN SWALLOW Prov:ALMANZARNORALDA Q [employer] INST[employer]ER 07/31/23 Cephalexin Monohydrate (Cephalexin) 500 Mg Cap, 1 CAP PO QID for 10 Days, #40 CAP Prov:YOHANNORALDA Q [employer] INST[employer]ER 07/31/23 Tramadol Hcl (Tramadol Hcl) 50 Mg Tab, 50 MG PO Q8HP PRN for 5 Days, #15 TAB Prov:EMERY PATE MD 07/30/23 Methocarbamol (Methocarbamol) 750 Mg Tab, 750 MG PO BID, #20 TAB Prov:LEONEL LEWIS 02/09/23 Ibuprofen (Ibuprofen) 800 Mg Tab, 1 TAB PO TID, #30 TAB Prov:LEONEL LEWIS 02/09/23 Ondansetron Odt 4MG Tab (ZOFRAN PO) 4 Mg Tb, 4 MG PO Q6HP PRN for 30 Days, #120 TAB ODT TAB-DISSOLVE IN MOUTH, THEN SWALLOW Prov:JEFFREY MCLEAN CNM 10/13/22 Cephalexin (KEFLEX CAPSULE) 250 Mg Cp, 500 MG PO BID for 7 Days, #14 CAP Prov:JEFFREY MCLEAN CNM 10/13/22 Hydrocortisone (Rectal) (Procto-Med Hc) 2.5 % Cre, 2.5 % CO BID PRN for 30 Days, #3 CRE 1 Refill Prov:JEFFREY MCLEANM 09/08/22 Doxylamine Succinate (Sleep) (Unisom) 25 Mg Tab, 25 MG PO HS for 60 Days, #60 TAB 2 Refills Prov:JEFFREY MCLEAN 09/08/22 Pyridoxine HCl (Vitamin B6) 50 Mg Tab, 25 MG PO TID for 60 Days, #90 TAB 2 Refills Prov:JEFFREY MCLEAN 09/08/22 Prenat Vit W/ Iron Carbonyl-Fe (OB COMPLETE/DHA) Dha Cap, 1 CAP PO DAILY for 90 Days, #90 CAP 3 Refills Prov:JEFFREY MCLEAN [facility] 09/08/22 Reported Medications Docusate Sodium (Colace) 100 Mg Cap, 1 CAP PO BID, #60 CAP 10/28/22 Docusate Sodium (Colace) 100 Mg Cap, 1 CAP PO BID, #60 CAP 2 Refills 10/28/22 Information Source: Patient Mode of Arrival: Ambulatory Timing: Hours Duration: Since onset Quality: Aching Severity: Moderate Past Medical History PAST MEDICAL HISTORY: Denies Surgical History: Denies all surgeries [employer] History: Ovarian Cysts Family History Family History: Reviewed,noncontributory to illness Social History Smoker: Non-Smoker Alcohol: Denies ETOH Use Drugs: Marijuana Lives In: Home Constitutional: reports: malaise Gastrointestinal: reports: abdominal pain, nausea All Other Systems: Reviewed and Negative Physical Exam General Appearance: Mild Distress HEENT: Normal ENT Inspection, Pharynx Normal, TMs Normal Neck: Full Range of Motion, Non-Tender, Normal, Normal Inspection Respiratory: Chest Non-Tender, Lungs Clear, No Accessory Muscle Use, No Respiratory Distress, Normal Breath Sounds Cardiovascular: No Edema, No JVD, No Murmur, No Gallop, Normal Peripheral Pulses, Regular Rate/Rhythm Breast Exam: Deferred Gastrointestinal: Non Tender, Soft, Other (Patient denies any pain or discomfort with palpation of her abdomen) Genitalia: Deferred Pelvic: Deferred Rectal: Deferred Extremities: No calf tenderness, Normal capillary refill, Normal inspection, Normal range of motion, Non-tender, No pedal edema Musculoskeletal : Apperance: Normal Neurologic: Alert, health and safety trainer II-XII nml as Tested, No Motor Deficits, Normal Affect, Normal Mood, No Sensory Deficits Cerebellar Function: Normal Reflexes: Normal Skin: Dry, Normal Color, Warm Lymphatic: No Adenopathy Was a procedure done? Was a procedure done?: No GI differential Dx Differential Diagnosis: Appendicitis, Bowel Obstruction, Cholecystitis, Constipation, Diverticular disease, Ectopic , Gastritis/PUD, Gastroenteritis, Pancreatitis, PID, UTI, Other X-Ray, Labs, Meds, VS Vital Signs Date Time Temp Pulse Resp B/P (MAP) Pulse Ox O2 Delivery O2 Flow Rate FiO2 12/09/24 07:06 58 16 99 Room Air* 0 21 12/09/24 07:01 98.1 58 16 119/71 (87) 99 98.1 12/09/24 04:47 99.1 73 14 120/79 99 99.1 Lab Test 12/09/24 05:14 Range/Units White Blood Count 5.1 4.4-10.8 10^3/uL Red Blood Count 4.61 4.0-5.20 10^6/uL Hemoglobin 13.6 12.2-16.2 g/dL Hematocrit 39.8 36.0-46.0 % Mean Corpuscular Volume 86.3 80.0-100.0 fL Mean Corpuscular Hemoglobin 29.5 28.0-32.0 pg Mean Corpuscular Hemoglobin Concent 34.2 32.0-36.0 g/dL Red Cell Distribution Width 13.9 11.8-14.3 % Platelet Count 204 140-450 10^3/uL Mean Platelet Volume 8.4 6.9-10.8 fL Neutrophils (%) (Auto) 69.4 37.0-80.0 % Lymphocytes (%) (Auto) 24.6 10.0-50.0 % Monocytes (%) (Auto) 5.5 0.0-12.0 % Eosinophils (%) (Auto) 0.2 0.0-7.0 % Basophils (%) (Auto) 0.3 0.0-2.0 % Neutrophils # (Auto) 3.6 1.6-8.6 10 ^3/uL Lymphocytes # (Auto) 1.3 0.4-5.4 10 ^3/uL Monocytes # (Auto) 0.3 0-1.3 10 ^3/uL Eosinophils # (Auto) 0 0-0.8 10 ^3/uL Basophils # (Auto) 0 0-0.2 10 ^3/uL Nucleated Red Blood Cells 0.0 % Sodium Level 138 136-145 mmol/L Potassium Level 3.7 3.5-5.1 mmol/L Chloride Level 102 98-107 mmol/L Carbon Dioxide Level 25 20-31 mmol/L Anion Gap 11 5-15 Blood Urea Nitrogen 9 9-23 mg/dL Creatinine 0.84 0.550-1.02 mg/dL Glomerular Filtration Rate Calc 98 >90 mL/min BUN/Creatinine Ratio 10.7 10.0-20.0 Serum Glucose 99 74-106 mg/dL Calcium Level 9.5 8.7-10.4 mg/dL Total Bilirubin 1.3 H 0.2-1.0 mg/dL Aspartate Amino Transferase (AST) 28 13-40 U/L Alanine Aminotransferase (ALT) 29 7-40 U/L Alkaline Phosphatase 38 L 46-116 U/L Total Protein 7.4 5.7-8.2 g/dL Albumin 4.8 3.2-4.8 g/dL Lipase 64 H 12-53 U/L Current Medications Medications (Trade) Dose Ordered Sig/Robin Route Start Time Stop Time Status Last Admin Sodium Chloride 1,000 ml @ 1,000 mls/hr Q1H ONCE IV 12/09/24 05:15 12/09/24 06:14 DC 12/09/24 07:05 Ondansetron HCl (Zofran) 4 mg ONCE ONCE IV 12/09/24 05:15 12/09/24 05:16 DC 12/09/24 06:59 Ketorolac Tromethamine (Toradol Injection) 15 mg ONCE ONCE IV 12/09/24 05:15 12/09/24 05:16 DC 12/09/24 06:59 Time of 1ST Reevaluation: 05:12 Reevaluation 1ST: Unchanged Patient Education/Counseling: Diagnosis, Treatment Family Education/Counseling: No Family Present SEPSIS Sepsis Screen Date sepsis recognized/suspect: Dec 09, 2024 Time Sepsis recognized/suspect: 045 Recent Procedure: No On Antibiotic Therapy: No Respiratory Rate >20: No Heart Rate >90: No Temp<36 C (96.8 F) or >38.3 C: No SBP <90 or MAP <65 mmHG: No New Acute Mental Status Change: No Is the patient on CPAP, BIPAP,: No Vital Signs Date Time Temp Pulse Resp B/P (MAP) Pulse Ox O2 Delivery O2 Flow Rate FiO2 12/09/24 07:06 58 16 99 Room Air* 0 21 12/09/24 07:01 98.1 58 16 119/71 (87) 99 98.1 12/09/24 04:47 99.1 73 14 120/79 99 99.1 Laboratory Tests Test 12/09/24 05:14 White Blood Count 5.1 10^3/uL (4.4-10.8) Departure 1 Departure Time of Disposition: 06:30 Impression: Primary Impression: Nausea and vomiting Disposition: 01 HOME / SELF CARE / HOMELESS Condition: Stable Discharged With: Self Critical Care Note Critical Care Time?: No Stability Stability form required: No Heart Score Heart Score: Heart Score Response (Comments) Value History N/A 0 EKG N/A 0 Age N/A 0 Risk Factors N/A 0 Troponin N/A 0 Total 0 DAVI PATE MD Dec 09, 2024 05:13
[2024-12-09 05:33] LABS: Hematocrit 39.8 % (36.0-46.0); Hemoglobin 13.6 g/dL (12.2-16.2); Mean Corpuscular Hemoglobin 29.5 pg (28.0-32.0); Mean Corpuscular Volume 86.3 fL (80.0-100.0); Nucleated Red Blood Cells % 0.0 %
[2024-12-09 05:50] LABS: Alanine Aminotransferase 29 U/L (7-40); Anion Gap 11 (5-15); BUN/Creatinine Ratio 10.7 (10.0-20.0); Calcium 9.5 mg/dL (8.7-10.4); Carbon Dioxide 25 mmol/L (20-31); Chloride 102 mmol/L (98-107); Glucose 99 mg/dL (74-106); Potassium 3.7 mmol/L (3.5-5.1); Sodium 138 mmol/L (136-145); Total Protein 7.4 g/dL (5.7-8.2)
[2024-12-09 05:54] LABS: Albumin 4.8 g/dL (3.2-4.8); Alkaline Phosphatase 38 U/L (46-116); Bilirubin, Total 1.3 mg/dL (0.2-1.0); Blood Urea Nitrogen 9 mg/dL (9-23); Lipase 64 U/L (12-53)
[2024-12-09] MEDS: KETOROLAC TROMETH 30 MG/ML 1ML VIAL IV ONE (06:59)
[2024-12-09] MEDS: ONDANSETRON HCL 4 MG/2 ML VIAL IV ONE (06:59)
[2024-12-09 07:01] VITALS: BP 119/71; TEMP 98.1
[2024-12-09] MEDS: SODIUM CHLORIDE 0.9% 1,000 ML IV ONE (07:05)
[2024-12-09 07:06] VITALS: PULSE 58; RESP 16; O2SAT 99
== END 2024-12-09 07:46 | disposition left against medical advice (07) ==
LOC: ER 04:55
DX: R11.2 Nausea with vomiting, unspecified (principal); Z79.899 Other long term (current) drug therapy
CPT/HCPCS: 36415; 80053; 83690; 85025; 96361; 96374; 96375; 99284; J1885; J2405; J7030